=== PATIENT | female | born 1975 | race African-American/Black ===

== ENCOUNTER 2016-06-20 21:10 | Inpatient (IN) | payer MEDICAID ==
[~2016-06-20] VITALS: Ht 157.5 cm; Wt 90.7 kg
[~2016-06-20 21:10] MED LIST: BENZ1TAB10 PO; LURA40 PO; LURA80 PO
[2016-06-20] MEDS ORDERED: HALOPERIDOL 5 MG TABLET PO PRN (23:00)
[2016-06-20 23:47] VITALS: BP 100/60
[2016-06-21] MEDS ORDERED: INFLUENZA VIRUS VACCINE QVS 2016-17 (3YR+)/PF 60 MCG/0.5 ML SYRINGE IM ONE (00:30)
[2016-06-21 02:13] VITALS: BP 112/72
[2016-06-21 08:42] LABS: BASOPHILS % (AUTO) 0.4 % (0.0-2.0); EOSINOPHILS % (AUTO) 1.5 % (1.0-6.0); HEMATOCRIT 40.6 % (36-46); HEMOGLOBIN 13.1 g/dL (12.0-16.0); LYMPHOCYTES # (AUTO) 2.2 K/uL (1.0-4.8); LYMPHOCYTES % (AUTO) 30.6 % (22.0-44.0); MEAN CORPUSCULAR HEMOGLOBIN 28.7 pg (26.0-34.0); MEAN CORPUSCULAR HGB CONC 32.3 G/dL (31.0-37.0); MEAN CORPUSCULAR VOLUME 89 fL (80-100); MONOCYTES # (AUTO) 0.5 K/uL (0.1-1.0); MONOCYTES % (AUTO) 7.7 % (2.0-9.0); NEUTROPHILS # (AUTO) 4.3 K/uL (1.8-7.7); NEUTROPHILS % (AUTO) 59.8 % (40.0-70.0); PLATELET COUNT (AUTO) 316 K/uL (150-450); RED BLOOD CELL COUNT(AUTO) 4.57 MIL/uL (4.00-5.20); RED CELL DISTRIBUTION WIDTH 15.3 % (11.5-14.5); WHITE BLOOD COUNT (AUTO) 7.1 K/uL (4.5-11.0)
[2016-06-21] MEDS: ARIPiprazole 10 MG TABLET PO SCH (08:47)
[2016-06-21 09:07] LABS: ALANINE AMINOTRANSFERASE 16 U/L (12-78); ALBUMIN 2.9 g/dL (3.4-5.0); ANION GAP 9 mmol/L (8-16); ASPARTATE AMINOTRANSFERASE 8 U/L (15-37); BILIRUBIN,TOTAL 0.3 mg/dL (0.1-1.0); CALCIUM, TOTAL 8.5 mg/dL (8.8-10.5); CARBON DIOXIDE 24 mmol/L (22-29); CHLORIDE 104 mmol/L (98-107); CREATININE 0.74 mg/dL (0.60-1.30); GLOMERULAR FILTR. RATE CALC > 60 mL/min (>60); SODIUM SERUM 137 mmol/L (136-145); TOTAL PROTEIN, SERUM 7.1 g/dL (6.4-8.2); UREA NITROGEN, BLOOD 22 mg/dL (7-18)
[2016-06-21] MEDS ORDERED: CloNIDine HCL 0.1 MG TABLET PO PRN (11:15)
[2016-06-21] MEDS ORDERED: ONDANSETRON HCL 4 MG TABLET PO PRN (11:15)
[2016-06-21] MEDS ORDERED: BACITRACIN 28.4 GM OINTMENT TP PRN (11:15)
[2016-06-21] MEDS ORDERED: MAGNESIUM HYDROXIDE SUSPENSION 30 ML UDCUP PO PRN (11:15)
[2016-06-21] MEDS ORDERED: LOPERAMIDE HCL 2 MG CAPSULE PO PRN (11:15)
[2016-06-21] MEDS ORDERED: MAG HYDROX/AL HYDROX/SIMETH ES 30 ML SUSPENSION UDCUP PO PRN (11:15)
[2016-06-21] MEDS ORDERED: PETROLATUM,WHITE 71 GM JELLY TP PRN (11:15)
[2016-06-21 16:40] VITALS: BP 107/51
[2016-06-21] MEDS: BENZTROPINE MESYLATE 1 MG TABLET PO SCH (17:00)
[2016-06-21] MEDS: OLANZapine 5 MG TABLET PO SCH (21:00)
[2016-06-22 02:45] VITALS: BP 139/61
[2016-06-22] MEDS: ACETAMINOPHEN 325 MG TABLET PO PRN ×3 (02:51→23:59)
[2016-06-22] MEDS: OLANZapine 5 MG TABLET PO SCH ×2 (08:33→20:44)
[2016-06-22] MEDS: ARIPiprazole 10 MG TABLET PO SCH (08:33)
[2016-06-22] MEDS: BENZTROPINE MESYLATE 1 MG TABLET PO SCH ×2 (08:33→16:43)
[2016-06-22 08:58] VITALS: BP 149/73
[2016-06-22 16:32] VITALS: BP 118/66
[2016-06-22 23:55] VITALS: BP 101/66
[2016-06-23 08:33] VITALS: BP 141/74
[2016-06-23] MEDS: OLANZapine 5 MG TABLET PO SCH ×2 (09:00→21:00)
[2016-06-23] MEDS: ARIPiprazole 10 MG TABLET PO SCH (09:00)
[2016-06-23] MEDS: BENZTROPINE MESYLATE 1 MG TABLET PO SCH ×2 (09:00→17:00)
[2016-06-23 16:19] VITALS: BP 109/61
[2016-06-23] MEDS: ACETAMINOPHEN 325 MG TABLET PO PRN (17:11)
[2016-06-24 03:31] VITALS: BP 105/66
[2016-06-24 08:02] VITALS: BP 131/62
[2016-06-24] MEDS: BENZTROPINE MESYLATE 1 MG TABLET PO SCH ×2 (09:00→16:57)
[2016-06-24] MEDS: OLANZapine 5 MG TABLET PO SCH ×2 (09:00→21:00)
[2016-06-24] MEDS: ARIPiprazole 10 MG TABLET PO SCH (09:00)
[2016-06-24 16:14] VITALS: BP 118/75
[2016-06-25 00:12] VITALS: BP 100/68
[2016-06-25] MEDS: ACETAMINOPHEN 325 MG TABLET PO PRN ×2 (00:16→20:22)
[2016-06-25 08:45] VITALS: BP 104/67
[2016-06-25] MEDS: ARIPiprazole 10 MG TABLET PO SCH (08:56)
[2016-06-25] MEDS: BENZTROPINE MESYLATE 1 MG TABLET PO SCH ×2 (08:56→17:00)
[2016-06-25] MEDS: OLANZapine 5 MG TABLET PO SCH ×2 (08:56→20:38)
[2016-06-25 16:23] VITALS: BP 128/100
[2016-06-26 06:29] VITALS: BP 127/74
[2016-06-26 08:02] VITALS: BP 130/17
[2016-06-26] MEDS: OLANZapine 5 MG TABLET PO SCH ×2 (09:00→21:00)
[2016-06-26] MEDS: ARIPiprazole 10 MG TABLET PO SCH (09:00)
[2016-06-26] MEDS: BENZTROPINE MESYLATE 1 MG TABLET PO SCH ×2 (09:00→17:00)
[2016-06-26] MEDS: ACETAMINOPHEN 325 MG TABLET PO PRN ×2 (13:09→17:31)
[2016-06-26 16:11] VITALS: BP 129/68
[2016-06-27 01:36] VITALS: BP 104/70
[2016-06-27 08:36] VITALS: BP 100/73
[2016-06-27] MEDS: BENZTROPINE MESYLATE 1 MG TABLET PO SCH ×2 (09:00→17:00)
[2016-06-27] MEDS: OLANZapine 5 MG TABLET PO SCH ×2 (09:00→21:42)
[2016-06-27] MEDS: ARIPiprazole 10 MG TABLET PO SCH (09:00)
[2016-06-27] MEDS ORDERED: HALOPERIDOL LACTATE 5 MG/ML VIAL IM PRN (11:45)
[2016-06-27 16:26] VITALS: BP 99/65
[2016-06-27] MEDS: ACETAMINOPHEN 325 MG TABLET PO PRN (16:50)
[2016-06-27] MEDS: TraMADol HCL 50 MG TABLET PO PRN (21:25)
[2016-06-28 05:06] VITALS: BP 107/65
[2016-06-28] MEDS: ACETAMINOPHEN 325 MG TABLET PO PRN (05:14)
[2016-06-28 08:00] VITALS: BP 134/66
[2016-06-28] MEDS: OLANZapine 5 MG TABLET PO SCH (08:42)
[2016-06-28] MEDS: ARIPiprazole 10 MG TABLET PO SCH (08:42)
[2016-06-28] MEDS: BENZTROPINE MESYLATE 1 MG TABLET PO SCH ×2 (08:50→17:00)
[2016-06-28 16:11] VITALS: BP 121/64
[2016-06-28 18:46] VITALS: BP 128/68
[2016-06-28] MEDS: TraMADol HCL 50 MG TABLET PO PRN (18:46)
[2016-06-28] MEDS: OLANZapine 10 MG TABLET PO SCH (20:17)
[2016-06-29 08:13] VITALS: BP 130/66
[2016-06-29] MEDS: BENZTROPINE MESYLATE 1 MG TABLET PO SCH ×2 (09:00→17:00)
[2016-06-29] MEDS: OLANZapine 5 MG TABLET PO SCH (09:40)
[2016-06-29 16:33] VITALS: BP 117/74
[2016-06-29] MEDS: OLANZapine 10 MG TABLET PO SCH (20:10)
[2016-06-30 07:15] VITALS: BP 110/72
[2016-06-30 08:37] VITALS: BP 142/69
[2016-06-30] MEDS: OLANZapine 5 MG TABLET PO SCH (08:59)
[2016-06-30] MEDS: BENZTROPINE MESYLATE 1 MG TABLET PO SCH ×2 (09:00→17:00)
[2016-06-30 16:09] VITALS: BP 137/78
[2016-06-30] MEDS: OLANZapine 10 MG TABLET PO SCH (20:15)
[2016-07-01 06:32] VITALS: BP 135/72
[2016-07-01 08:24] VITALS: BP 118/67
[2016-07-01] MEDS: OLANZapine 5 MG TABLET PO SCH (08:49)
[2016-07-01] MEDS: BENZTROPINE MESYLATE 1 MG TABLET PO SCH ×2 (09:00→17:00)
[2016-07-01] MEDS ORDERED: PETROLATUM,WHITE 5 GM PACKET JELLY TP ONE (13:34)
[2016-07-01 16:14] VITALS: BP 116/70
[2016-07-01] MEDS: OLANZapine 10 MG TABLET PO SCH (20:26)
[2016-07-02 00:01] VITALS: BP 109/67
[2016-07-02 08:16] VITALS: BP 121/66
[2016-07-02] MEDS: OLANZapine 5 MG TABLET PO SCH (08:53)
[2016-07-02] MEDS: BENZTROPINE MESYLATE 1 MG TABLET PO SCH ×2 (08:58→17:00)
[2016-07-02 16:09] VITALS: BP 122/74
[2016-07-02] MEDS: OLANZapine 10 MG TABLET PO SCH (20:15)
[2016-07-03 00:32] VITALS: BP 139/76
[2016-07-03 08:37] VITALS: BP 135/73
[2016-07-03] MEDS: BENZTROPINE MESYLATE 1 MG TABLET PO SCH ×2 (08:48→17:00)
[2016-07-03] MEDS: OLANZapine 5 MG TABLET PO SCH (08:49)
[2016-07-03 16:00] VITALS: BP 106/67
[2016-07-03] MEDS: OLANZapine 10 MG TABLET PO SCH (20:58)
[2016-07-04 03:21] VITALS: BP 117/71
[2016-07-04 08:27] VITALS: BP 136/67
[2016-07-04] MEDS: BENZTROPINE MESYLATE 1 MG TABLET PO SCH ×2 (09:00→16:59)
[2016-07-04] MEDS: OLANZapine 5 MG TABLET PO SCH (09:12)
[2016-07-04] MEDS: LORazepam 2 MG TABLET PO PRN (09:12)
[2016-07-04 16:00] VITALS: BP 123/62
[2016-07-04] MEDS: TraMADol HCL 50 MG TABLET PO PRN (17:58)
[2016-07-04] MEDS: OLANZapine 10 MG TABLET PO SCH (20:30)
[2016-07-05 06:32] VITALS: BP 105/73
[2016-07-05 08:02] VITALS: BP 111/69
[2016-07-05] MEDS: OLANZapine 5 MG TABLET PO SCH (08:44)
[2016-07-05] MEDS: BENZTROPINE MESYLATE 1 MG TABLET PO SCH ×2 (08:45→16:56)
[2016-07-05 16:14] VITALS: BP 113/75
[2016-07-05] MEDS: OLANZapine 10 MG TABLET PO SCH (20:22)
[2016-07-05] MEDS: ACETAMINOPHEN 325 MG TABLET PO PRN (21:21)
[2016-07-06 08:10] VITALS: BP 126/77
[2016-07-06] MEDS: OLANZapine 5 MG TABLET PO SCH (08:30)
[2016-07-06] MEDS: BENZTROPINE MESYLATE 1 MG TABLET PO SCH (08:33)
[2016-07-06 16:09] VITALS: BP 122/78
[2016-07-06] MEDS: OLANZapine 10 MG TABLET PO SCH (20:03)
[2016-07-06] MEDS: TraMADol HCL 50 MG TABLET PO PRN (21:01)
[2016-07-07] MEDS: OLANZapine 5 MG TABLET PO SCH (08:17)
[2016-07-07 08:38] VITALS: BP 117/74
[2016-07-07 16:05] VITALS: BP 121/80
[2016-07-07] MEDS: OLANZapine 10 MG TABLET PO SCH (20:20)
[2016-07-08 03:26] VITALS: BP 123/76
[2016-07-08 08:47] VITALS: BP 122/59
[2016-07-08] MEDS: OLANZapine 5 MG TABLET PO SCH (09:00)
[2016-07-08] MEDS: MINERAL OIL/PETROLATUM,WHITE PF 3.5 GM OPHTHALMIC OINTMENT OU PRN (12:40)
[2016-07-08 16:00] VITALS: BP 122/68
[2016-07-08] MEDS: OLANZapine 10 MG TABLET PO SCH (20:10)
[2016-07-08] MEDS: TraMADol HCL 50 MG TABLET PO PRN (20:10)
[2016-07-09 07:13] VITALS: BP 120/72
[2016-07-09 08:39] VITALS: BP 117/76
[2016-07-09] MEDS: OLANZapine 5 MG TABLET PO SCH (09:22)
[2016-07-09 18:26] VITALS: BP 129/80
[2016-07-09] MEDS: OLANZapine 10 MG TABLET PO SCH (20:45)
[2016-07-10 00:27] VITALS: BP 128/76
[2016-07-10] MEDS: TraMADol HCL 50 MG TABLET PO PRN (00:28)
[2016-07-10 08:51] VITALS: BP 126/81
[2016-07-10] MEDS: OLANZapine 5 MG TABLET PO SCH (09:58)
[2016-07-10] MEDS: MINERAL OIL/PETROLATUM,WHITE PF 3.5 GM OPHTHALMIC OINTMENT OU PRN (13:48)
[2016-07-10 16:23] VITALS: BP 121/76
[2016-07-10] MEDS: OLANZapine 10 MG TABLET PO SCH (21:00)
[2016-07-11 01:39] VITALS: BP 140/75
[2016-07-11 03:55] VITALS: BP 135/70
[2016-07-11] MEDS: LORazepam 2 MG TABLET PO PRN ×2 (03:59→20:16)
[2016-07-11] MEDS: OLANZapine 5 MG TABLET PO SCH (08:16)
[2016-07-11 08:40] VITALS: BP 130/72
[2016-07-11 16:34] VITALS: BP 119/61
[2016-07-11] MEDS: OLANZapine 10 MG TABLET PO SCH (20:56)
[2016-07-12 02:08] VITALS: BP 131/74
[2016-07-12 08:56] VITALS: BP 119/77
[2016-07-12] MEDS: OLANZapine 5 MG TABLET PO SCH (09:00)
[2016-07-12] MEDS: ACETAMINOPHEN 325 MG TABLET PO PRN (12:58)
[2016-07-12 18:23] VITALS: BP 128/73
[2016-07-12 19:55] VITALS: BP 125/77
[2016-07-12] MEDS: TraMADol HCL 50 MG TABLET PO PRN (19:55)
[2016-07-12] MEDS: OLANZapine 10 MG TABLET PO SCH (21:00)
[2016-07-13 04:21] VITALS: BP 121/73
[2016-07-13] MEDS: ACETAMINOPHEN 325 MG TABLET PO PRN ×2 (04:23→20:19)
[2016-07-13 08:22] VITALS: BP 139/54
[2016-07-13] MEDS: OLANZapine 5 MG TABLET PO SCH (09:18)
[2016-07-13] MEDS ORDERED: HALOPERIDOL LACTATE 5 MG/ML VIAL IM PRN (10:45)
[2016-07-13 16:21] VITALS: BP 119/69
[2016-07-13] MEDS: BENZOCAINE/MENTHOL LOZENGE MM PRN (19:03)
[2016-07-13] MEDS: LORazepam 2 MG TABLET PO PRN (19:03)
[2016-07-13] MEDS: OLANZapine 10 MG TABLET PO SCH (20:19)
[2016-07-14] MEDS: BENZOCAINE/MENTHOL LOZENGE MM PRN (04:08)
[2016-07-14 04:13] VITALS: BP 110/76
[2016-07-14] MEDS: CHOLECALCIFEROL (VIT D3) 1,000 UNITS TABLET PO SCH (08:35)
[2016-07-14] MEDS: OLANZapine 5 MG TABLET PO SCH (08:35)
[2016-07-14 08:36] VITALS: BP 110/78
[2016-07-14 13:50] VITALS: BP 117/75
[2016-07-14] MEDS: TraMADol HCL 50 MG TABLET PO PRN (13:55)
[2016-07-14 17:47] VITALS: BP 109/68
[2016-07-14] MEDS: OLANZapine 7.5 MG TABLET PO SCH (20:50)
[2016-07-14] MEDS: LORazepam 2 MG TABLET PO PRN (21:54)
[2016-07-15] MEDS: CHOLECALCIFEROL (VIT D3) 1,000 UNITS TABLET PO SCH (08:39)
[2016-07-15] MEDS: OLANZapine 7.5 MG TABLET PO SCH ×2 (08:39→20:55)
[2016-07-15] MEDS ORDERED: OLANZapine 7.5 MG TABLET PO SCH (09:00)
[2016-07-15 09:18] VITALS: BP 119/63
[2016-07-15 16:13] VITALS: BP 149/66
[2016-07-15 18:12] VITALS: BP 129/69
[2016-07-15] MEDS: LORazepam 2 MG TABLET PO PRN (18:21)
[2016-07-15] MEDS: ACETAMINOPHEN 325 MG TABLET PO PRN (18:21)
[2016-07-16 03:15] VITALS: BP 113/74
[2016-07-16] MEDS: TraMADol HCL 50 MG TABLET PO PRN (03:17)
[2016-07-16 08:22] VITALS: BP 127/79
[2016-07-16] MEDS: CHOLECALCIFEROL (VIT D3) 1,000 UNITS TABLET PO SCH (08:27)
[2016-07-16] MEDS: OLANZapine 7.5 MG TABLET PO SCH ×2 (08:27→21:04)
[2016-07-16 16:11] VITALS: BP 123/71
[2016-07-16 18:24] VITALS: BP 129/76
[2016-07-16] MEDS: ACETAMINOPHEN 325 MG TABLET PO PRN (18:27)
[2016-07-16] MEDS: LORazepam 2 MG TABLET PO PRN (18:27)
[2016-07-17 03:21] VITALS: BP 132/86
[2016-07-17 08:47] VITALS: BP 122/86
[2016-07-17] MEDS: OLANZapine 7.5 MG TABLET PO SCH ×2 (08:58→20:20)
[2016-07-17] MEDS: CHOLECALCIFEROL (VIT D3) 1,000 UNITS TABLET PO SCH (08:58)
[2016-07-17 16:09] VITALS: BP 129/80
[2016-07-17] MEDS: ACETAMINOPHEN 325 MG TABLET PO PRN (17:14)
[2016-07-18 00:10] VITALS: BP 123/71
[2016-07-18] MEDS: LORazepam 2 MG TABLET PO PRN ×2 (00:27→20:04)
[2016-07-18] MEDS: MINERAL OIL/PETROLATUM,WHITE PF 3.5 GM OPHTHALMIC OINTMENT OU PRN (00:27)
[2016-07-18 08:08] VITALS: BP 136/72
[2016-07-18] MEDS: CHOLECALCIFEROL (VIT D3) 1,000 UNITS TABLET PO SCH (09:00)
[2016-07-18] MEDS: OLANZapine 7.5 MG TABLET PO SCH ×2 (09:21→20:04)
[2016-07-18 16:13] VITALS: BP 135/74
[2016-07-19 04:53] VITALS: BP 131/71
[2016-07-19] MEDS: OLANZapine 7.5 MG TABLET PO SCH ×2 (08:24→20:21)
[2016-07-19] MEDS: CHOLECALCIFEROL (VIT D3) 1,000 UNITS TABLET PO SCH (08:24)
[2016-07-19 08:59] VITALS: BP 153/101
[2016-07-19 16:17] VITALS: BP 115/66
[2016-07-19 17:23] VITALS: BP 112/67
[2016-07-19] MEDS: TraMADol HCL 50 MG TABLET PO PRN (17:26)
[2016-07-19] MEDS: BENZOCAINE/MENTHOL LOZENGE MM PRN (22:56)
[2016-07-19] MEDS: ZOLPIDEM TARTRATE 10 MG TABLET PO PRN (22:56)
[2016-07-20 05:56] VITALS: BP 110/82
[2016-07-20] MEDS: CHOLECALCIFEROL (VIT D3) 1,000 UNITS TABLET PO SCH (08:48)
[2016-07-20] MEDS: OLANZapine 7.5 MG TABLET PO SCH (08:48)
[2016-07-20 09:13] VITALS: BP 117/74
[2016-07-20 16:11] VITALS: BP 122/74
[2016-07-20] MEDS: OLANZapine 5 MG RAPDIS TABLET PO SCH (20:21)
[2016-07-20] MEDS: BENZOCAINE/MENTHOL LOZENGE MM PRN (20:21)
[2016-07-20] MEDS: ZOLPIDEM TARTRATE 10 MG TABLET PO PRN (21:09)
[2016-07-21] MEDS: LORazepam 2 MG TABLET PO PRN ×2 (03:43→18:17)
[2016-07-21 04:18] VITALS: BP 130/82
[2016-07-21] MEDS: CHOLECALCIFEROL (VIT D3) 1,000 UNITS TABLET PO SCH (08:14)
[2016-07-21] MEDS: OLANZapine 5 MG RAPDIS TABLET PO SCH ×2 (08:15→20:28)
[2016-07-21 08:48] VITALS: BP 104/73
[2016-07-21 16:26] VITALS: BP 129/80
[2016-07-22 01:40] VITALS: BP 138/73
[2016-07-22] MEDS: MINERAL OIL/PETROLATUM,WHITE PF 3.5 GM OPHTHALMIC OINTMENT OU PRN (01:42)
[2016-07-22] MEDS: ZOLPIDEM TARTRATE 10 MG TABLET PO PRN ×2 (01:42→21:23)
[2016-07-22] MEDS: ALBUTEROL SULFATE HFA 90 MCG/PUFF 8 GM INHALER IH PRN ×2 (03:37→20:29)
[2016-07-22 08:23] VITALS: BP 120/70
[2016-07-22] MEDS: CHOLECALCIFEROL (VIT D3) 1,000 UNITS TABLET PO SCH (09:00)
[2016-07-22] MEDS: OLANZapine 5 MG RAPDIS TABLET PO SCH ×2 (09:27→20:29)
[2016-07-22 16:50] VITALS: BP 138/64
[2016-07-22] MEDS: ACETAMINOPHEN 325 MG TABLET PO PRN (17:32)
[2016-07-22] MEDS: LORazepam 2 MG TABLET PO PRN (21:29)
[2016-07-23 03:45] VITALS: BP 115/80
[2016-07-23] MEDS: LORazepam 2 MG TABLET PO PRN ×2 (03:45→18:52)
[2016-07-23 08:28] VITALS: BP 138/85
[2016-07-23] MEDS: CHOLECALCIFEROL (VIT D3) 1,000 UNITS TABLET PO SCH (09:00)
[2016-07-23] MEDS: OLANZapine 5 MG RAPDIS TABLET PO SCH ×2 (09:06→20:15)
[2016-07-23] MEDS: ACETAMINOPHEN 325 MG TABLET PO PRN (17:20)
[2016-07-23 18:13] VITALS: BP 137/88
[2016-07-23] MEDS: ZOLPIDEM TARTRATE 10 MG TABLET PO PRN (20:15)
[2016-07-24] MEDS: MINERAL OIL/PETROLATUM,WHITE PF 3.5 GM OPHTHALMIC OINTMENT OU PRN (01:48)
[2016-07-24 06:26] VITALS: BP 124/79
[2016-07-24] MEDS: CHOLECALCIFEROL (VIT D3) 1,000 UNITS TABLET PO SCH (08:16)
[2016-07-24] MEDS: OLANZapine 5 MG RAPDIS TABLET PO SCH ×2 (08:16→20:08)
[2016-07-24 08:29] VITALS: BP 120/67
[2016-07-24] MEDS: BENZOCAINE/MENTHOL LOZENGE MM PRN (09:12)
[2016-07-24] MEDS: LORazepam 2 MG TABLET PO PRN (15:49)
[2016-07-24 16:24] VITALS: BP 133/72
[2016-07-24 20:08] VITALS: BP 128/79
[2016-07-24] MEDS: TraMADol HCL 50 MG TABLET PO PRN (20:08)
[2016-07-25 01:45] VITALS: BP 126/64
[2016-07-25] MEDS: ALBUTEROL SULFATE HFA 90 MCG/PUFF 8 GM INHALER IH PRN ×2 (01:46→15:40)
[2016-07-25] MEDS: ZOLPIDEM TARTRATE 10 MG TABLET PO PRN (01:46)
[2016-07-25] MEDS: CHOLECALCIFEROL (VIT D3) 1,000 UNITS TABLET PO SCH (08:13)
[2016-07-25] MEDS: OLANZapine 5 MG RAPDIS TABLET PO SCH ×2 (08:13→20:51)
[2016-07-25 08:27] VITALS: BP 143/69
[2016-07-25 16:26] VITALS: BP 140/67
[2016-07-25] MEDS: ACETAMINOPHEN 325 MG TABLET PO PRN (18:06)
[2016-07-25] MEDS: LORazepam 2 MG TABLET PO PRN (18:07)
[2016-07-25] MEDS: TraMADol HCL 50 MG TABLET PO PRN (21:42)
[2016-07-26] MEDS: ALBUTEROL SULFATE HFA 90 MCG/PUFF 8 GM INHALER IH PRN (04:14)
[2016-07-26 07:30] VITALS: BP 112/76
[2016-07-26] MEDS: OLANZapine 5 MG RAPDIS TABLET PO SCH ×2 (08:09→20:34)
[2016-07-26] MEDS: CHOLECALCIFEROL (VIT D3) 1,000 UNITS TABLET PO SCH (08:09)
[2016-07-26 08:48] VITALS: BP 134/72
[2016-07-26 16:24] VITALS: BP 126/66
[2016-07-26 17:20] VITALS: BP 128/74
[2016-07-26] MEDS: TraMADol HCL 50 MG TABLET PO PRN (17:20)
[2016-07-27] VITALS: BP 113/65
[2016-07-27] MEDS: TraMADol HCL 50 MG TABLET PO PRN (00:18)
[2016-07-27 08:18] VITALS: BP 114/72
[2016-07-27] MEDS: OLANZapine 5 MG RAPDIS TABLET PO SCH ×2 (08:50→20:31)
[2016-07-27] MEDS: CHOLECALCIFEROL (VIT D3) 1,000 UNITS TABLET PO SCH (08:50)
[2016-07-27] MEDS: ALBUTEROL SULFATE HFA 90 MCG/PUFF 8 GM INHALER IH PRN (12:41)
[2016-07-27] MEDS: LORazepam 2 MG TABLET PO PRN (12:41)
[2016-07-27] MEDS: BENZOCAINE/MENTHOL LOZENGE MM PRN (17:35)
[2016-07-27] MEDS: ACETAMINOPHEN 325 MG TABLET PO PRN (17:35)
[2016-07-28] MEDS: ZOLPIDEM TARTRATE 10 MG TABLET PO PRN ×2 (00:49→21:41)
[2016-07-28 00:56] VITALS: BP 113/74
[2016-07-28] MEDS: CHOLECALCIFEROL (VIT D3) 1,000 UNITS TABLET PO SCH (07:53)
[2016-07-28] MEDS: OLANZapine 5 MG RAPDIS TABLET PO SCH ×2 (07:53→21:14)
[2016-07-28 08:50] VITALS: BP 120/76
[2016-07-28 16:30] VITALS: BP 131/65
[2016-07-28] MEDS: LORazepam 2 MG TABLET PO PRN (21:14)
[2016-07-29] MEDS: LORazepam 2 MG TABLET PO PRN (07:23)
[2016-07-29] MEDS: OLANZapine 5 MG RAPDIS TABLET PO SCH ×2 (08:12→20:22)
[2016-07-29] MEDS: CHOLECALCIFEROL (VIT D3) 1,000 UNITS TABLET PO SCH (08:12)
[2016-07-29 08:21] VITALS: BP 130/63
[2016-07-29] MEDS: ALBUTEROL SULFATE HFA 90 MCG/PUFF 8 GM INHALER IH PRN (10:09)
[2016-07-29] MEDS: TraMADol HCL 50 MG TABLET PO PRN (15:58)
[2016-07-29 16:13] VITALS: BP 140/72
[2016-07-29] MEDS: ZOLPIDEM TARTRATE 10 MG TABLET PO PRN (21:05)
[2016-07-30 01:07] VITALS: BP 133/77
[2016-07-30] MEDS: LORazepam 2 MG TABLET PO PRN ×2 (03:25→12:12)
[2016-07-30] MEDS: OLANZapine 5 MG RAPDIS TABLET PO SCH ×2 (08:15→20:23)
[2016-07-30] MEDS: CHOLECALCIFEROL (VIT D3) 1,000 UNITS TABLET PO SCH (08:15)
[2016-07-30 08:44] VITALS: BP 122/53
[2016-07-30 16:14] VITALS: BP 122/85
[2016-07-30] MEDS: BENZOCAINE/MENTHOL LOZENGE MM PRN (17:47)
[2016-07-30] MEDS: TraMADol HCL 50 MG TABLET PO PRN (17:47)
[2016-07-31 01:27] VITALS: BP 136/67
[2016-07-31] MEDS: OLANZapine 5 MG RAPDIS TABLET PO SCH ×2 (08:01→20:11)
[2016-07-31] MEDS: CHOLECALCIFEROL (VIT D3) 1,000 UNITS TABLET PO SCH (08:01)
[2016-07-31] MEDS: LORazepam 2 MG TABLET PO PRN (08:01)
[2016-07-31 08:34] VITALS: BP 124/69
[2016-07-31 16:12] VITALS: BP 135/71
[2016-07-31 16:55] VITALS: BP 136/69
[2016-07-31] MEDS: ALBUTEROL SULFATE HFA 90 MCG/PUFF 8 GM INHALER IH PRN (16:58)
[2016-07-31] MEDS: ACETAMINOPHEN 325 MG TABLET PO PRN (16:59)
[2016-07-31] MEDS: BENZOCAINE/MENTHOL LOZENGE MM PRN (17:05)
[2016-07-31 17:55] VITALS: BP 126/72
[2016-07-31] MEDS: ZOLPIDEM TARTRATE 10 MG TABLET PO PRN (21:07)
[2016-08-01 01:05] VITALS: BP 124/68
[2016-08-01] MEDS: LORazepam 2 MG TABLET PO PRN ×2 (07:44→20:22)
[2016-08-01] MEDS: ALBUTEROL SULFATE HFA 90 MCG/PUFF 8 GM INHALER IH PRN ×2 (07:47→17:13)
[2016-08-01 08:34] VITALS: BP 134/78
[2016-08-01] MEDS: OLANZapine 5 MG RAPDIS TABLET PO SCH ×2 (08:44→20:03)
[2016-08-01] MEDS: CHOLECALCIFEROL (VIT D3) 1,000 UNITS TABLET PO SCH (08:44)
[2016-08-01 16:00] VITALS: BP 124/75
[2016-08-01 17:05] VITALS: BP 132/77
[2016-08-01] MEDS: ACETAMINOPHEN 325 MG TABLET PO PRN (17:12)
[2016-08-01 18:00] VITALS: BP 124/74
[2016-08-02 05:49] VITALS: BP 134/64
[2016-08-02] MEDS: CHOLECALCIFEROL (VIT D3) 1,000 UNITS TABLET PO SCH (08:12)
[2016-08-02] MEDS: LORazepam 2 MG TABLET PO PRN (08:12)
[2016-08-02] MEDS: OLANZapine 5 MG RAPDIS TABLET PO SCH ×2 (08:12→20:32)
[2016-08-02 08:31] VITALS: BP 110/60
[2016-08-02] MEDS: ALBUTEROL SULFATE HFA 90 MCG/PUFF 8 GM INHALER IH PRN (14:59)
[2016-08-02 16:00] VITALS: BP 132/81
[2016-08-02] MEDS: TraMADol HCL 50 MG TABLET PO PRN (17:11)
[2016-08-02 18:11] VITALS: BP 127/77
[2016-08-02] MEDS: BENZOCAINE/MENTHOL LOZENGE MM PRN (20:32)
[2016-08-03] VITALS: BP 131/72
[2016-08-03] MEDS: ZOLPIDEM TARTRATE 10 MG TABLET PO PRN ×2 (00:01→22:45)
[2016-08-03] MEDS: CHOLECALCIFEROL (VIT D3) 1,000 UNITS TABLET PO SCH (08:32)
[2016-08-03] MEDS: OLANZapine 5 MG RAPDIS TABLET PO SCH ×2 (08:32→20:19)
[2016-08-03] MEDS: LORazepam 2 MG TABLET PO PRN (08:32)
[2016-08-03 08:46] VITALS: BP 107/57
[2016-08-03 16:15] VITALS: BP 128/84
[2016-08-03 16:53] VITALS: BP 125/80
[2016-08-03] MEDS: TraMADol HCL 50 MG TABLET PO PRN (16:55)
[2016-08-03] MEDS: ALBUTEROL SULFATE HFA 90 MCG/PUFF 8 GM INHALER IH PRN (16:56)
[2016-08-04 03:39] VITALS: BP 121/76
[2016-08-04] MEDS: LORazepam 2 MG TABLET PO PRN ×2 (03:41→13:35)
[2016-08-04] MEDS: OLANZapine 5 MG RAPDIS TABLET PO SCH ×2 (08:21→20:12)
[2016-08-04 08:22] VITALS: BP 122/64
[2016-08-04] MEDS: TraMADol HCL 50 MG TABLET PO PRN ×2 (08:22→17:23)
[2016-08-04] MEDS: CHOLECALCIFEROL (VIT D3) 1,000 UNITS TABLET PO SCH (08:23)
[2016-08-04 16:00] VITALS: BP 114/68
[2016-08-04 17:22] VITALS: BP 120/70
[2016-08-05 00:05] VITALS: BP 126/80
[2016-08-05] MEDS: ZOLPIDEM TARTRATE 10 MG TABLET PO PRN ×2 (02:07→22:28)
[2016-08-05] MEDS: OLANZapine 5 MG RAPDIS TABLET PO SCH (08:49)
[2016-08-05] MEDS: LORazepam 2 MG TABLET PO PRN ×2 (08:49→16:53)
[2016-08-05] MEDS: CHOLECALCIFEROL (VIT D3) 1,000 UNITS TABLET PO SCH (08:49)
[2016-08-05 08:52] VITALS: BP 132/81
[2016-08-05 16:19] VITALS: BP 111/47
[2016-08-05] MEDS: TraMADol HCL 50 MG TABLET PO PRN (16:53)
[2016-08-05] MEDS: OLANZapine 10 MG RAPDIS TABLET PO SCH (20:35)
[2016-08-06 05:01] VITALS: BP 125/84
[2016-08-06] MEDS: OLANZapine 10 MG RAPDIS TABLET PO SCH (09:58)
[2016-08-06] MEDS: LORazepam 2 MG TABLET PO PRN (09:58)
[2016-08-06] MEDS: CHOLECALCIFEROL (VIT D3) 1,000 UNITS TABLET PO SCH (09:58)
[2016-08-06 10:10] VITALS: BP 135/68
[2016-08-06] MEDS ORDERED: OLAN10TA6 PO (11:30)
[2016-08-06] MEDS ORDERED: VITAD1000 PO (11:31)
== END 2016-08-06 15:19 | disposition home or self-care (01) | DRG 750 ==
LOC: B3A 23:05 → EDSTATUS 23:23 → B3A 06-21 11:03
DX: F20.0 Paranoid schizophrenia (principal); E32.8 Other diseases of thymus; E66.9 Obesity, unspecified; F12.90 Cannabis use, unspecified, uncomplicated; F23 Brief psychotic disorder; E58 Dietary calcium deficiency; E55.9 Vitamin D deficiency, unspecified; F17.210 Nicotine dependence, cigarettes, uncomplicated; M54.9 Dorsalgia, unspecified; J44.9 Chronic obstructive pulmonary disease, unspecified; K59.00 Constipation, unspecified; Z91.19 Patient's noncompliance with other medical treatment and regimen; Z88.6 Allergy status to analgesic agent; Z91.040 Latex allergy status; Z98.890 Other specified postprocedural states; Z94.7 Corneal transplant status; Z79.1 Long term (current) use of non-steroidal anti-inflammatories (NSAID); Z71.51 Drug abuse counseling and surveillance of drug abuser; Z71.6 Tobacco abuse counseling; Z79.899 Other long term (current) drug therapy; Z68.36 Body mass index [BMI] 36.0-36.9, adult; Z28.21 Immunization not carried out because of patient refusal
CPT/HCPCS: 82306; 87081; 90471; J1630; J3535

== ENCOUNTER 2017-03-01 16:17 | Inpatient (IN) | payer MEDICAID ==
[~2017-03-01] VITALS: Ht 157.5 cm; Wt 94.4 kg
[~2017-03-01 16:17] MED LIST changes: -BENZ1TAB10 PO; -LURA40 PO; -LURA80 PO; +RISP4 PO
[2017-03-01] MEDS ORDERED: LORazepam 2 MG TABLET PO PRN (19:00)
[2017-03-01 19:36] VITALS: BP 113/73
[2017-03-01] MEDS ORDERED: INFLUENZA VIRUS VACCINE QVS 2017-18 (3YR+)/PF 60 MCG/0.5 ML SYRINGE IM ONE (20:30)
[2017-03-02 06:52] VITALS: BP 110/72
[2017-03-02 08:09] VITALS: BP 103/61
[2017-03-02] MEDS: NICOTINE 7 MG/24 HOUR PATCH TD SCH (08:24)
[2017-03-02 08:53] LABS: BASOPHILS # (AUTO) 0.03 K/uL (0.00-0.20); BASOPHILS % (AUTO) 0.4 % (0.0-2.0); EOSINOPHILS % (AUTO) 1.25 % (1.0-6.0); HEMATOCRIT 41.4 % (36-46); HEMOGLOBIN 13.7 g/dL (12.0-16.0); LYMPHOCYTES # (AUTO) 2.3 K/uL (1.0-4.8); LYMPHOCYTES % (AUTO) 30.1 % (22.0-44.0); MEAN CORPUSCULAR HEMOGLOBIN 29.1 pg (26.0-34.0); MEAN CORPUSCULAR VOLUME 88 fL (80-100); MONOCYTES # (AUTO) 0.3 K/uL (0.1-1.0); MONOCYTES % (AUTO) 4.2 % (2.0-9.0); NEUTROPHILS # (AUTO) 4.9 K/uL (1.8-7.7); NEUTROPHILS % (AUTO) 64.1 % (40.0-70.0); PLATELET COUNT (AUTO) 264 K/uL (150-450); RED BLOOD CELL COUNT(AUTO) 4.69 MIL/uL (4.00-5.20); RED CELL DISTRIBUTION WIDTH 15.8 % (11.5-14.5); WHITE BLOOD COUNT (AUTO) 7.7 K/uL (4.5-11.0)
[2017-03-02] MEDS: RisperiDONE 2 MG TABLET PO SCH ×2 (09:00→20:43)
[2017-03-02 09:26] LABS: HEMOGLOBIN A1C 5.9 % (4.5-6.2)
[2017-03-02 09:46] LABS: ALANINE AMINOTRANSFERASE 21 U/L (12-78); ANION GAP 10 mmol/L (8-16); ASPARTATE AMINOTRANSFERASE 11 U/L (15-37); BILIRUBIN,TOTAL 0.4 mg/dL (0.1-1.0); CALCIUM, TOTAL 8.5 mg/dL (8.8-10.5); CARBON DIOXIDE 23 mmol/L (22-29); CHLORIDE 104 mmol/L (98-107); CHOL/HDL RATIO 2.8 (3.9-5.7); CREATININE 0.81 mg/dL (0.60-1.30); GLOMERULAR FILTR. RATE CALC > 60 mL/min (>60); POTASSIUM 4.2 mmol/L (3.5-5.1); SODIUM SERUM 137 mmol/L (136-145); THYROID STIMULATING HORMONE 2.46 uIU/mL (0.36-3.74); TOTAL PROTEIN, SERUM 6.6 g/dL (6.4-8.2); UREA NITROGEN, BLOOD 16 mg/dL (7-18)
[2017-03-02 16:00] VITALS: BP 104/80
[2017-03-02] MEDS: CHOLECALCIFEROL (VIT D3) 2,000 UNITS TABLET PO SCH (21:16)
[2017-03-03 04:52] VITALS: BP 112/69
[2017-03-03] MEDS: CHOLECALCIFEROL (VIT D3) 2,000 UNITS TABLET PO SCH ×2 (07:59→16:06)
[2017-03-03] MEDS: RisperiDONE 2 MG TABLET PO SCH ×2 (08:00→20:07)
[2017-03-03] MEDS: NICOTINE 7 MG/24 HOUR PATCH TD SCH (08:00)
[2017-03-03 08:30] VITALS: BP 126/74
[2017-03-03 16:00] VITALS: BP 94/74
[2017-03-04] MEDS: ZOLPIDEM TARTRATE 10 MG TABLET PO PRN ×2 (00:15→21:00)
[2017-03-04 02:44] VITALS: BP 128/88
[2017-03-04] MEDS: NICOTINE 7 MG/24 HOUR PATCH TD SCH (08:20)
[2017-03-04] MEDS: RisperiDONE 2 MG TABLET PO SCH ×2 (08:20→20:07)
[2017-03-04] MEDS: CHOLECALCIFEROL (VIT D3) 2,000 UNITS TABLET PO SCH ×2 (08:21→21:58)
[2017-03-04 08:56] VITALS: BP 126/88
[2017-03-04 16:26] VITALS: BP 106/69
[2017-03-05 06:51] VITALS: BP 110/72
[2017-03-05 08:40] VITALS: BP 123/78
[2017-03-05] MEDS: RisperiDONE 2 MG TABLET PO SCH (08:46)
[2017-03-05] MEDS: CHOLECALCIFEROL (VIT D3) 2,000 UNITS TABLET PO SCH (08:46)
[2017-03-05] MEDS: NICOTINE 7 MG/24 HOUR PATCH TD SCH (08:47)
[2017-03-05] MEDS ORDERED: CHOL200016 PO (12:26)
== END 2017-03-05 14:32 | disposition home or self-care (01) | DRG 750 ==
LOC: B3A 18:52
PROVIDERS: ADMIT Psychiatry & Neurology Child & Adolescent Psychiatry; ATTEND Psychiatry & Neurology Child & Adolescent Psychiatry
DX: F20.0 Paranoid schizophrenia (principal); J44.9 Chronic obstructive pulmonary disease, unspecified; F12.90 Cannabis use, unspecified, uncomplicated; Z94.7 Corneal transplant status; Z88.6 Allergy status to analgesic agent; Z88.8 Allergy status to other drugs, medicaments and biological substances; Z91.040 Latex allergy status; Z79.899 Other long term (current) drug therapy; Z87.891 Personal history of nicotine dependence; Z82.3 Family history of stroke; Z82.5 Family history of asthma and other chronic lower respiratory diseases
CPT/HCPCS: 83036; 84443; 87081

== ENCOUNTER 2017-05-02 12:38 | Emergency (ER) | payer MEDICAID ==
[~2017-05-02 12:38] MED LIST changes: +CHOL200016 PO
== END 2017-05-02 13:06 | disposition left against medical advice (07) ==
LOC: EMS 12:42
DX: R41.82 Altered mental status, unspecified (principal); Z53.21 Procedure and treatment not carried out due to patient leaving prior to being seen by health care provider

== ENCOUNTER 2018-03-23 16:16 | Emergency (ER) | payer MEDICAID ==
[~2018-03-23 16:16] MED LIST changes: -CHOL200016 PO; +CHOL200059 PO
== END 2018-03-23 16:20 | disposition left against medical advice (07) ==
LOC: EMS 16:18
DX: Z00.00 Encounter for general adult medical examination without abnormal findings (principal); Z53.21 Procedure and treatment not carried out due to patient leaving prior to being seen by health care provider

== ENCOUNTER 2018-07-13 12:01 | Inpatient (IN) | payer MEDICAID, MEDICARE ==
[~2018-07-13] VITALS: Ht 157.5 cm; Wt 97.1 kg
[2018-07-13 12:14] VITALS: BP 120/68
[2018-07-13] MEDS ORDERED: HALOPERIDOL 5 MG TABLET PO PRN (12:15)
[2018-07-13] MEDS ORDERED: ZOLPIDEM TARTRATE 10 MG TABLET PO PRN (12:15)
[2018-07-13] MEDS ORDERED: LORazepam 2 MG TABLET PO PRN (12:15)
[2018-07-13 13:00] VITALS: BP 90/50
[2018-07-13] MEDS ORDERED: PETROLATUM,WHITE 28 GM JELLY TP PRN (14:00)
[2018-07-13] MEDS ORDERED: MAG HYDROX/AL HYDROX/SIMETH ES 30 ML SUSPENSION UDCUP PO PRN (14:00)
[2018-07-13] MEDS ORDERED: DOCUSATE SODIUM 100 MG CAPSULE PO PRN (14:00)
[2018-07-13] MEDS ORDERED: MAGNESIUM HYDROXIDE SUSPENSION 30 ML UDCUP PO PRN (14:00)
[2018-07-13] MEDS ORDERED: IBUPROFEN 400 MG TABLET PO PRN (14:00)
[2018-07-13] MEDS ORDERED: ONDANSETRON HCL 4 MG TABLET PO PRN (14:00)
[2018-07-13] MEDS ORDERED: ALBUTEROL SULFATE HFA 90 MCG/PUFF 8 GM INHALER IH PRN (14:00)
[2018-07-13] MEDS ORDERED: GuaiFENesin/D-METHORPHAN [SUGAR-FREE] 200-20MG/10 ML SYRUP UDCUP PO PRN (14:00)
[2018-07-13] MEDS ORDERED: CloNIDine HCL 0.1 MG TABLET PO PRN (14:00)
[2018-07-13] MEDS ORDERED: ACETAMINOPHEN 325 MG TABLET PO PRN (14:00)
[2018-07-13] MEDS ORDERED: NICOTINE 14 MG/24 HOUR PATCH TD PRN (14:00)
[2018-07-13] MEDS ORDERED: LOPERAMIDE HCL 2 MG CAPSULE PO PRN (14:00)
[2018-07-13 16:25] VITALS: BP 114/77
[2018-07-14 07:03] VITALS: BP 110/66
[2018-07-14] MEDS ORDERED: LORazepam 2 MG/ML VIAL ONE (09:47)
[2018-07-14] MEDS ORDERED: HALOPERIDOL LACTATE 5 MG/ML VIAL IM ONE (10:00)
[2018-07-14] MEDS ORDERED: LORazepam 2 MG/ML VIAL IM ONE (10:00)
[2018-07-14 16:08] VITALS: BP 130/78
[2018-07-14] MEDS: RisperiDONE 4 MG TABLET PO SCH (21:00)
[2018-07-15 06:22] VITALS: BP 122/79
[2018-07-15 08:03] VITALS: BP 127/82
[2018-07-15 08:04] LABS: BASOPHILS % (AUTO) 1.1 % (0.0-2.0); HEMOGLOBIN 13.6 g/dL (12.0-16.0); LYMPHOCYTES # (AUTO) 2.6 K/uL (1.0-4.8); LYMPHOCYTES % (AUTO) 37.9 % (22.0-44.0); MEAN CORPUSCULAR HEMOGLOBIN 28.2 pg (26.0-34.0); MEAN CORPUSCULAR HGB CONC 33.3 G/dL (31.0-37.0); MEAN CORPUSCULAR VOLUME 85 fL (80-100); MONOCYTES # (AUTO) 0.6 K/uL (0.1-1.0); MONOCYTES % (AUTO) 8.8 % (2.0-9.0); NEUTROPHILS # (AUTO) 3.5 K/uL (1.8-7.7); NEUTROPHILS % (AUTO) 51.2 % (40.0-70.0); PLATELET COUNT (AUTO) 330 K/uL (150-450); RED BLOOD CELL COUNT(AUTO) 4.83 MIL/uL (4.00-5.20); RED CELL DISTRIBUTION WIDTH 15.5 % (11.5-14.5)
[2018-07-15 08:25] LABS: HEMOGLOBIN A1C 5.8 % (4.5-6.2)
[2018-07-15] MEDS: RisperiDONE 4 MG TABLET PO SCH ×2 (08:42→20:24)
[2018-07-15 08:51] LABS: ALANINE AMINOTRANSFERASE 15 U/L (12-78); ALKALINE PHOSPHATASE 70 U/L (46-116); ANION GAP 11 mmol/L (8-16); ASPARTATE AMINOTRANSFERASE 13 U/L (15-37); BILIRUBIN,TOTAL 0.4 mg/dL (0.1-1.0); CARBON DIOXIDE 24 mmol/L (22-29); CHLORIDE 105 mmol/L (98-107); CHOL/HDL RATIO 3.6 (3.9-5.7); CHOLESTEROL 103 mg/dL (131-200); CREATININE 0.77 mg/dL (0.60-1.30); GLOMERULAR FILTR. RATE CALC > 60 mL/min (>60); GLUCOSE,RANDOM 96 mg/dL (70-110); HCG,QUANTITATIVE < 1 mIU/mL (0-6); HDL CHOLESTEROL 29 mg/dL (40-60); LDL CHOL (CALC.) 61 mg/dL (0-130); SODIUM SERUM 140 mmol/L (136-145); THYROID STIMULATING HORMONE 2.72 uIU/mL (0.36-3.74); TOTAL PROTEIN, SERUM 7.3 g/dL (6.4-8.2); TRIGLYCERIDES 66 mg/dL (15-150); UREA NITROGEN, BLOOD 16 mg/dL (7-18)
[2018-07-15 16:13] VITALS: BP 121/85
[2018-07-16 03:09] VITALS: BP 113/73
[2018-07-16] MEDS: RisperiDONE 4 MG TABLET PO SCH ×2 (09:00→21:00)
[2018-07-16 10:04] VITALS: BP 121/67
[2018-07-16 16:07] VITALS: BP 123/80
[2018-07-17 02:52] VITALS: BP 105/79
[2018-07-17 08:26] VITALS: BP 137/71
[2018-07-17] MEDS: RisperiDONE 4 MG TABLET PO SCH ×2 (08:51→21:00)
[2018-07-17 16:06] VITALS: BP 124/77
[2018-07-18 00:14] VITALS: BP 106/63
[2018-07-18] MEDS: RisperiDONE 4 MG TABLET PO SCH (08:14)
[2018-07-18 08:16] VITALS: BP 100/61
[2018-07-18 16:29] VITALS: BP 148/72
[2018-07-18] MEDS ORDERED: HALOPERIDOL LACTATE 5 MG/ML VIAL IM PRN (17:15)
[2018-07-18] MEDS: RisperiDONE 2 MG TABLET PO SCH (21:19)
[2018-07-19 05:31] VITALS: BP 110/62
[2018-07-19 08:19] VITALS: BP 120/83
[2018-07-19] MEDS: RisperiDONE 2 MG TABLET PO SCH ×2 (09:06→20:27)
[2018-07-19 16:05] VITALS: BP 110/70
[2018-07-20 00:21] VITALS: BP 116/78
[2018-07-20 08:10] VITALS: BP 105/61
[2018-07-20] MEDS: RisperiDONE 2 MG TABLET PO SCH ×2 (08:50→20:55)
[2018-07-20 16:16] VITALS: BP 121/67
[2018-07-21 02:38] VITALS: BP 119/71
[2018-07-21 08:11] VITALS: BP 129/80
[2018-07-21] MEDS: RisperiDONE 2 MG TABLET PO SCH ×2 (09:28→20:41)
[2018-07-21 16:11] VITALS: BP 112/66
[2018-07-22 00:46] VITALS: BP 107/64
[2018-07-22 08:21] VITALS: BP 100/65
[2018-07-22] MEDS: RisperiDONE 3 MG TABLET PO SCH ×2 (09:05→20:14)
[2018-07-22 16:58] VITALS: BP 100/60
[2018-07-23 02:19] VITALS: BP 106/64
[2018-07-23] MEDS: RisperiDONE 3 MG TABLET PO SCH ×2 (08:02→20:45)
[2018-07-23 08:25] VITALS: BP 101/57
[2018-07-23 16:44] VITALS: BP 115/75
[2018-07-24 06:10] VITALS: BP 104/64
[2018-07-24 08:22] VITALS: BP 107/65
[2018-07-24] MEDS: RisperiDONE 3 MG TABLET PO SCH ×2 (08:35→20:46)
[2018-07-24 16:08] VITALS: BP 111/79
[2018-07-25 04:20] VITALS: BP 115/72
[2018-07-25 08:28] VITALS: BP 107/63
[2018-07-25] MEDS: RisperiDONE 3 MG TABLET PO SCH ×2 (08:38→21:39)
[2018-07-25 17:04] VITALS: BP 107/60
[2018-07-26 06:16] VITALS: BP 110/65
[2018-07-26 08:39] VITALS: BP 103/62
[2018-07-26] MEDS: RisperiDONE 3 MG TABLET PO SCH ×2 (09:22→20:54)
[2018-07-26 17:51] VITALS: BP 111/80
[2018-07-27 07:00] VITALS: BP 108/72
[2018-07-27 08:13] VITALS: BP 133/72
[2018-07-27] MEDS: RisperiDONE 3 MG TABLET PO SCH ×2 (08:45→20:47)
[2018-07-27 17:33] VITALS: BP 117/63
[2018-07-28 05:59] VITALS: BP 101/65
[2018-07-28 08:24] VITALS: BP 112/63
[2018-07-28] MEDS: RisperiDONE 3 MG TABLET PO SCH ×2 (08:45→20:34)
[2018-07-28 16:14] VITALS: BP 114/58
[2018-07-28 21:07] VITALS: BP 112/60
[2018-07-29 06:17] VITALS: BP 100/65
[2018-07-29 08:15] VITALS: BP 117/58
[2018-07-29] MEDS ORDERED: RISP3 PO ×2 (09:09→13:24)
[2018-07-29] MEDS: RisperiDONE 3 MG TABLET PO SCH (09:11)
== END 2018-07-29 14:15 | disposition home or self-care (01) | DRG 750 ==
LOC: B3A 12:39
DX: F20.0 Paranoid schizophrenia (principal); E55.9 Vitamin D deficiency, unspecified; J44.9 Chronic obstructive pulmonary disease, unspecified; F12.90 Cannabis use, unspecified, uncomplicated; F17.200 Nicotine dependence, unspecified, uncomplicated; Z79.899 Other long term (current) drug therapy
CPT/HCPCS: 83036; 84439; 84443; J1630; J2060

== ENCOUNTER 2023-05-06 09:02 | Emergency (ER) | payer MEDICARE, OTHER ==
[~2023-05-06] VITALS: Ht 157.5 cm; Wt 99.5 kg
[~2023-05-06 09:02] MED LIST changes: -CHOL200059 PO; +RISP3TAB35 PO; -RISP4 PO
[2023-05-06 09:05] VITALS: TEMP 97.9
[2023-05-06] MEDS ORDERED: ACETAMINOPHEN 500 MG TABLET PO ONE (09:30)
[2023-05-06] MEDS ORDERED: ACET-3385 PO (09:35)
[2023-05-06 10:33] LABS: COVID AG,FIA SOURCE NASAL SWAB
[2023-05-06 10:51] LABS: SARS-COV2 (COVID) ANTIGEN,FIA Negative (Negative)
[2023-05-06 10:52] LABS: INFLUENZA TYPE A NEGATIVE FOR TYPE A (NEGATIVE); INFLUENZA TYPE B NEGATIVE FOR TYPE B (NEGATIVE)
[2023-05-06 11:15] VITALS: BP 128/74; PULSE 80; RESP 16
== END 2023-05-06 11:17 | disposition home or self-care (01) ==
LOC: EMS 09:12
DX: R52 Pain, unspecified (principal); F20.9 Schizophrenia, unspecified; F12.90 Cannabis use, unspecified, uncomplicated; Z98.890 Other specified postprocedural states; Z91.040 Latex allergy status; Z88.6 Allergy status to analgesic agent; Z20.822 Contact with and (suspected) exposure to COVID-19
CPT/HCPCS: 87804; 99283